=== PATIENT | male | born 1945 ===

== ENCOUNTER 2018-11-14 16:52 | Outpatient (REF) | payer MEDICARE, BC, SELFPAY ==
[2018-11-14 22:12] LABS: ALT 41 U/L (12-78); AST 28 U/L (15-37); Albumin 3.8 g/dL (3.4-5.0); Alkaline Phosphatase 50 U/L (46-116); Anion Gap 12.2 mmol/L (3-11); BUN 44 mg/dL (7-18); Bilirubin, Total 0.5 mg/dL (0.2-1.0); CO2 24.8 mmol/L (21.0-32.0); CREATININE 1.11 mg/dL (0.70-1.30); Calcium 9.8 mg/dL (8.5-10.1); Chloride 104 mmol/L (98-107); Glucose 112 mg/dL (70-100); Potassium 4.3 mmol/L (3.5-5.1); Sodium 141 mmol/L (136-145); Total Protein 7.3 g/dL (6.4-8.2)
== END 2018-11-14 17:12 ==
LOC: NCHCN 16:52
PROVIDERS: PCP Family Medicine; Visit Provider Family Medicine
DX: E88.09 Other disorders of plasma-protein metabolism, not elsewhere classified (principal)
CPT/HCPCS: 80053

== ENCOUNTER 2019-01-22 15:02 | Outpatient (REF) | payer MEDICARE, BC, SELFPAY ==
[2019-01-22 21:18] LABS: COMMENT (LAB VIEW ONLY) 38.05 mg/dL; Microalb ug/mg Crea 37.3 ug/mg Cr
== END 2019-01-22 15:22 ==
LOC: NCHCN 15:02
PROVIDERS: PCP Family Medicine; Visit Provider Registered Nurse
DX: R80.9 Proteinuria, unspecified (principal)
CPT/HCPCS: 82043; 82570

== ENCOUNTER 2020-05-20 20:03 | Outpatient (REF) | payer MEDICARE, BC, SELFPAY ==
[2020-05-20 21:06] LABS: Hemoglobin A1C 6.6 % (<5.7)
[2020-05-20 21:12] LABS: ALT 46 U/L (16-63); AST 28 U/L (15-37); Albumin 3.9 g/dL (3.4-5.0); Alkaline Phosphatase 42 U/L (46-116); Anion Gap 9.8 mmol/L (3-11); BUN 40 mg/dL (7-18); Bilirubin, Total 0.5 mg/dL (0.2-1.0); CO2 25.2 mmol/L (21.0-32.0); CREATININE 1.21 mg/dL (0.70-1.30); Calcium 9.7 mg/dL (8.5-10.1); Calculated LDL 76 mg/dL (<100); Chloride 105 mmol/L (98-107); Cholesterol 157 mg/dL (<200); Estimated GFR 58.62 (mL/min/1.73m2); Glucose 110 mg/dL (74-106); HDL Cholesterol 56 mg/dL (40-60); Potassium 4.5 mmol/L (3.5-5.1); Sodium 140 mmol/L (136-145); Total Protein 7.4 g/dL (6.4-8.2); Triglyceride 127 mg/dL (<150)
== END 2020-05-20 20:23 ==
LOC: NCHCN 20:03
PROVIDERS: PCP Family Medicine; Visit Provider Family Medicine
DX: E11.9 Type 2 diabetes mellitus without complications (principal); E78.5 Hyperlipidemia, unspecified; I10 Essential (primary) hypertension; I25.5 Ischemic cardiomyopathy
CPT/HCPCS: 80053; 80061; 83036

== ENCOUNTER 2020-11-18 16:50 | Outpatient (REF) | payer MEDICARE, BC, SELFPAY ==
[2020-11-18 22:11] LABS: COMMENT (LAB VIEW ONLY) 24.81 mg/dL; Microalb ug/mg Crea 43.5 ug/mg Cr
== END 2020-11-18 16:51 | disposition home or self-care (01) ==
LOC: NCHCN 16:50
PROVIDERS: PCP Family Medicine; Visit Provider Family Medicine
DX: E11.9 Type 2 diabetes mellitus without complications (principal); I10 Essential (primary) hypertension; E78.5 Hyperlipidemia, unspecified
CPT/HCPCS: 82043; 82570

== ENCOUNTER 2021-08-19 22:32 | Outpatient (REF) | payer MEDICARE, BC, SELFPAY ==
[2021-08-19 22:12] LABS: Anion Gap 12.6 mmol/L (3-11); BUN 61 mg/dL (7-18); CO2 20.4 mmol/L (21.0-32.0); CREATININE 1.5 mg/dL (0.70-1.30); Calcium 9.7 mg/dL (8.5-10.1); Chloride 105 mmol/L (98-107); Glucose 148 mg/dL (74-106); NT-proBNP 4414 pg/mL (<300); Potassium 4.4 mmol/L (3.5-5.1); Sodium 138 mmol/L (136-145)
== END 2021-08-19 22:33 | disposition home or self-care (01) ==
LOC: NCHCN 22:32
PROVIDERS: PCP Family Medicine; Visit Provider Family Medicine
DX: I50.22 Chronic systolic (congestive) heart failure (principal)
CPT/HCPCS: 80048; 83880

== ENCOUNTER 2021-08-25 19:16 | Outpatient (REF) | payer MEDICARE, BC, SELFPAY ==
[2021-08-25 21:02] LABS: BUN 52 mg/dL (7-18); CREATININE 1.2 mg/dL (0.70-1.30); Calcium 9.5 mg/dL (8.5-10.1); Chloride 106 mmol/L (98-107); Estimated GFR 58.86 (mL/min/1.73m2); Glucose 180 mg/dL (74-106); NT-proBNP 2602 pg/mL (<300); Potassium 4.5 mmol/L (3.5-5.1); Sodium 140 mmol/L (136-145)
== END 2021-08-25 19:17 | disposition home or self-care (01) ==
LOC: NCHCN 19:16
PROVIDERS: PCP Family Medicine; Visit Provider Family Medicine
DX: I50.22 Chronic systolic (congestive) heart failure (principal)
CPT/HCPCS: 80048; 83880

== ENCOUNTER 2021-09-29 16:48 | Outpatient (REF) | payer MEDICARE, BC, SELFPAY ==
[2021-09-29 21:32] LABS: Anion Gap 14.4 mmol/L (3-11); BUN 53 mg/dL (7-18); CO2 17.6 mmol/L (21.0-32.0); CREATININE 1.1 mg/dL (0.70-1.30); Calcium 9.3 mg/dL (8.5-10.1); Chloride 105 mmol/L (98-107); Glucose 180 mg/dL (74-106); NT-proBNP 2584 pg/mL (<300); Potassium 4.3 mmol/L (3.5-5.1); Sodium 137 mmol/L (136-145)
== END 2021-09-29 16:49 | disposition home or self-care (01) ==
LOC: NCHCN 16:48
PROVIDERS: PCP Family Medicine; Visit Provider Family Medicine
DX: I50.9 Heart failure, unspecified (principal)
CPT/HCPCS: 80048; 83880

== ENCOUNTER 2021-10-16 16:44 | Outpatient (REF) | payer MEDICARE, BC, SELFPAY ==
[2021-10-16 21:37] LABS: HCT 49.9 % (40.0-50.0); HGB 16.2 g/dL (13.5-17.5); MCH 27.9 pg (27.0-33.0); MCHC 32.5 % (32.0-36.0); MPV 11.7 fL (8.0-11.0); Platelet Count 160 10^3/uL (130-400); RDW 15.3 % (11.8-14.1); RDW-SD 47.8 fL; WBC 9.49 10^3/uL (4.4-10.8)
[2021-10-16 22:00] LABS: Anion Gap 13.8 mmol/L (3-11); BUN 64 mg/dL (7-18); CO2 19.2 mmol/L (21.0-32.0); CREATININE 1.5 mg/dL (0.70-1.30); Calcium 9.6 mg/dL (8.5-10.1); Chloride 101 mmol/L (98-107); Glucose 204 mg/dL (74-106); Potassium 4.5 mmol/L (3.5-5.1); Sodium 134 mmol/L (136-145); TSH 3.13 uIU/mL (0.36-3.74)
[2021-10-18 10:23] LABS: COVID-19 RT-PCR UVMMC Result Negative (Negative)
[2021-10-20 12:13] LABS: NT-proBNP 12208 pg/mL (<300)
== END 2021-10-16 16:45 | disposition home or self-care (01) ==
LOC: NCHCN 16:44
PROVIDERS: PCP Family Medicine; Visit Provider Registered Nurse
DX: R06.00 Dyspnea, unspecified (principal); I25.10 Atherosclerotic heart disease of native coronary artery without angina pectoris; Z20.822 Contact with and (suspected) exposure to COVID-19; J06.9 Acute upper respiratory infection, unspecified
CPT/HCPCS: 80048; 85027; U0003; U0005; 83880; 84443

== ENCOUNTER 2021-10-30 18:34 | Outpatient (REF) | payer MEDICARE, BC, SELFPAY ==
--- OUTSIDE RECORDS SUMMARY | 2021-10-30 18:38 | XMS_ITS | CCD ---
:1945 Author Care Team Providers Name Role Phone CATRACHO Attending Physician Unavailable CATRACHO Rounding (Secondary) Physician Unavailab le Vital Signs Unknown or Not Available. Allergies Allergy Code Allergy Type Reaction Status LIDOCAINE 6387 Drug allergy Active Procedures Unknown or Not Available. History of Immunizations Unknown or Not Available. Problems Unknown or Not Available. Results Unknown or Not Available. Active Medications Unknown or Not Available. Medications Administered During Visit Unknown or Not Available. 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 If you have left the spital and have any questions, please contact your primary care physician. Chief Complaint and Reason For Visit Unknown or Not Available. Function Status Unknown or Not Available. Plan of Care Unknown or Not Available. Referral/Transition of Care Unknown or Not Available.
--- OUTSIDE RECORDS SUMMARY | 2021-10-30 18:38 | XMS_ITS | CCD ---
:1945 Author Care Team Providers Name Role Phone MD TOMAS Attending Physician Unavailable Vital Signs Unknown or Not Available. Allergies Allergy Code Allergy Type Reaction Status LIDOCAINE 6387 Drug allergy Active Procedures Unknown or Not Available. History of Immunizations Unknown or Not Available. Problems Unknown or Not Available. Results COMPREHENSIVE METABOLIC PANEL (CMP) - Co llect Date/Time: 05/18/2021 13:51 Test Name Code Test Result Test Units Test Ref Range GLUCOSE 2345-7 135 mg/dL L=70 H=11 6 BUN 3094-0 35 mg/dL L=6 H=25 CREATININE 2160-0 1.21 mg/dL L=0.67 H=1.17 SODIUM SERUM 2951-2 142 mmol/L L=136 H=14 5 POTASSIUM SERUM 2823-3 4.1 mmol/L L=3.4 H =5.2 CHLORIDE SERUM 2075-0 107 mmol/L L=96 H= 110 CARBON DIOXIDE (CO2) 2028-9 20 mmol/L L=22 H=34 ANION GAP 19421-8 14.8 mmol/L CALCIUM SERUM 51314-4 9.3 mg/dL L=8.2 H=10.2 BILIRUBIN TOTAL 1975-2 0.7 mg/dL L=0.0 H =1.3 ALK. PHOS. 6768-6 56 U/L L=46 H=11 6 SGOT (AST) 1920-8 25 U/L L=15 H=37 SGPT (ALT) 1742-6 46 U/L L=12 H=78 TOTAL PROTEIN 2885-2 7.8 gm/dL L=6.0 H=8 .0 ALBUMIN 1751-7 3.9 gm/dL L=3.4 H=5. 0 AGE 75 years eGFR (non-Afr.Amer.) 21512-9 58 mL/min eGFR (Afr-[place]ian) 02774-6 71 mL/min HEMOGLOBIN A1C - Collect Date/Time: 04/23 13:51 Test Name Code Test Result Test Units Test Ref Range Hgb A1c 4548-4 6.9 % L=3.8 H=5. 7 MEAN BLOOD GLUCOSE 21484-3 144 mg/dL LIPID PANEL - Collect Date/Time: 021 13:51 Test Name Code Test Result Test Units Test Ref Range CHOLESTEROL 2093-3 139 mg/dL L=0 H=200 TRIGLYCERIDES 2571-8 70 mg/dL L=56 H=240 HDL 2085-9 54 mg/dL L=30 H=74 non-HDL-C 48398-9 85 mg/dL L=0 H=160 LDL (CALC) 92426-1 71 mg/dL L=0 H=130 % HDL 38.8 % Chol/HDL Ratio 9830-1 2.6 L=0.0 H=4.9 CHD Relative Risk 0.5 x Avg L=0.0 H=1.0 LDL/HDL Ratio 38993-8 1.3 L=0.0 H=3.5 CHD Relative Risk. 0.4 x Avg L=0.0 H=1.0 FASTING STATUS: NON FASTING N/A Active Medications Unknown or Not Available. Medications Administered During Visit Unknown or Not Available. Encounters Encounter Diagnosis Diagnosis Code Start Date Essential hypertension [id number] 05/18/2021 Social History Smoking Status Code Start Date End Date Never smoker [id number] Patient Decision Aids Unknown or Not Available. Discharge Instructions You were admitted to [facility] on 05/18/2021 13:47 with a principal diagnosis of Essential (primary) hyperte nsion You had the following tests done: COMPREHENSIVE METABOLIC PANEL (CMP) HEMOGLOBIN A1C L IPID PANEL You were discharged from [facility] on 05/18/2021 13:47 Should you have any questions prior to [...]
--- OUTSIDE RECORDS SUMMARY | 2021-10-30 18:38 | XMS_ITS | CCD ---
:1945 Author Care Team Providers Name Role Phone Danae SWAIN Attending Physician Unavailable Danae SWAIN Rounding (Secondary) Physician Unavailab shaw Vital Signs Unknown or Not Available. Allergies Allergy Code Allergy Type Reaction Status [facility] 6387 Drug allergy Active Procedures Unknown or Not Available. History of Immunizations Unknown or Not Available. Problems Unknown or Not Available. Results Unknown or Not Available. Active Medications Unknown or Not Available. Medications Administered During Visit Unknown or Not Available. Encounters Encounter Diagnosis Diagnosis Code Start Date Hypertensive heart disease with heart failure I110 09/03/2021 Social History Smoking Status Code Start Date End Date Never smoker [id number] Patient Decision Aids Unknown or Not Available. Discharge Instructions You were admitted to [facility] on 09/03/2021 15:03 with a principal diagnosis of Hypertensive heart disease with heart failure You were discharged from [facility] on 09/03/2021 00:00 Should you have any questions prior to d ischarge, please contact a member of your healthcare team. If you have left the [facility] and have any questions, please contact your primary care physician. Chief Complaint and Reason For Visit Unknown or Not Available. Function Status Unknown or Not Available. Plan of Care Unknown or Not Available. Referral/Transition of Care Unknown or Not Available.
--- OUTSIDE RECORDS SUMMARY | 2021-10-30 18:38 | XMS_ITS | CCD ---
:1945 Author Care Team Providers Name Role Phone MD CHRIS Attending Physician Unavailable Wes LUNA MD Er Physician 1 Unavailable MD TOMAS Rounding (Secondary) Physician Unavailab le Vital Signs Unknown or Not Available. Allergies Allergy Code Allergy Type Reaction Status LIDOCAINE 6387 Drug allergy Active Procedures Unknown or Not Available. History of Immunizations Unknown or Not Available. Problems Unknown or Not Available. Results COMPREHENSIVE METABOLIC PANEL (CMP) - Co llect Date/Time: 04/07/2021 19:15 Test Name Code Test Result Test Units Test Ref Range GLUCOSE 2345-7 136 mg/dL L=70 H=11 6 BUN 3094-0 44 mg/dL L=6 H=25 CREATININE 2160-0 1.27 mg/dL L=0.67 H=1.17 SODIUM SERUM 2951-2 135 mmol/L L=136 H=14 5 POTASSIUM SERUM 2823-3 4.5 mmol/L L=3.4 H =5.2 CHLORIDE SERUM 2075-0 103 mmol/L L=96 H= 110 CARBON DIOXIDE (CO2) 2028-9 23 mmol/L L=22 H=34 ANION GAP 25319-8 9.2 mmol/L CALCIUM SERUM 80199-8 9.9 mg/dL L=8.2 H=10.2 BILIRUBIN TOTAL 1975-2 0.5 mg/dL L=0.0 H =1.3 ALK. PHOS. 6768-6 49 U/L L=46 H=11 6 SGOT (AST) 1920-8 22 U/L L=15 H=37 SGPT (ALT) 1742-6 25 U/L L=12 H=78 TOTAL PROTEIN 2885-2 8.5 gm/dL L=6.0 H=8 .0 ALBUMIN 1751-7 3.6 gm/dL L=3.4 H=5. 0 AGE 75 years eGFR (non-Afr.Amer.) 79285-4 55 mL/min eGFR (Afr-[place]) 49500-0 67 mL/min TROPONIN-I ADM. - Collect Date/Time: 19:15 Test Name Code Test Result Test Units Test Ref Range TROPONIN-I 42576-3 <0.017 ng/mL L=0.000 H=0. 060 CBC W/ DIFFERENTIAL - Collect Date/Time: 04/07/2021 19:15 Test Name Code Test Result Test Units Test Ref Range WBC 6690-2 10.88 th/cmm L=5.00 H=10.00 NEUT % 70.4 % L=40.0 H=80.0 LYMPH % 14.1 % L=10.0 H=50.0 MONO % 87600-7 12.4 % L=2.0 H=12.0 EOS % 2.1 % L=0.0 H=8. 0 BASO % 0.6 % L=0.0 H=3. 0 IG % 2514-8 0.4 % L=0.0 H=1. 1 NRBC % 67910-9 0.0 % L=0.0 H=0. 0 NEUT abs count 751-8 7.7 th/cmm L=1.6 H= 8.4 LYMPH abs count 731-0 1.5 th/cmm L=1.5 H =4.0 MONO abs count 742-7 1.4 th/cmm L=0.2 H= 1.0 EOS abs count 711-2 0.2 th/cmm L=0.0 H=0 .5 BASO abs count 704-7 0.1 th/cmm L=0.0 H= 0.2 IG abs count 76698-4 0.0 th/cmm L=0.0 H=0. 1 NRBC abs count 95129-3 0.0 mil/cmm L=0.0 H= 0.0 RBC 789-8 5.00 mil/cmm L=4.30 H=6.20 HEMOGLOBIN 718-7 14.7 gm/dL L=13.0 H=17.0 HEMATOCRIT 4544-3 45 % L=45 H=52 MCV 787-2 91 fL L=82 H=92 MCH 785-6 29.4 pg L=27.0 H=31.0 MCHC 786-4 32.5 % L=32.0 H=36.0 RDW-SD 788-0 46.7 fL L=39.0 H=49.0 PLATELET COUNT 777-3 156 th/cmm L=150 H= 450 Active Medications Unknown or Not Available. Medications Administered During Visit Unknown or Not Available. Encounters Encounter Diagnosis Diagnosis Code Start Date Cerebral infarction, unspecified I639 021 Social History Smoking Status Code Start Date End Date Never smoker [id number] Patient Decision Aids Unknown or Not Available. Discharge Instructions You were admitted to [facility] on 04/07/2021 18:57 with a principal diagnosis of Cerebral infarction, unspec ified You had the following tests done: CBC W/ DIFFERENTIAL COMPREHENSIVE METABOLIC PANEL (CMP) TROPONIN-I ADM. You were discharged from [facility] on 04/07/2021 22:00 Should you have any questions prior to d ischarge, please contact a member of your healthcare team. If you have left the ho spital and have any questions, please contact your primary care physician. Chief Complaint and Reason For Visit Chief Complaint Date of Onset POSSIBLE TIA Function Status Unknown or Not Available. Plan of Care Unknown or Not Available. Referral/Transition of Care Unknown or Not Available.
--- OUTSIDE RECORDS SUMMARY | 2021-10-30 18:38 | XMS_ITS | CCD ---
:1945 Author Care Team Providers Name Role Phone Wes LUNA MD Attending Physician Unavailable Wes LUNA MD Er Physician 1 Unavailable Vital Signs Unknown or Not Available. Allergies Allergy Code Allergy Type Reaction Status LIDOCAINE 6387 Drug allergy Active Procedures Unknown or Not Available. History of Immunizations Unknown or Not Available. Problems Unknown or Not Available. Results Unknown or Not Available. Active Medications Unknown or Not Available. Medications Administered During Visit Unknown or Not Available. 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 Discharge Instructions You were admitted to [facility] on 04/06/2021 18:31 with a principal diagnosis of Ophthalmoplegic migraine, n ot intractable You were discharged from [facility] on 04/06/2021 19:52 Should you have any questions prior to d ischarge, please contact a member of your healthcare team. If you have left the spital and have any questions, please contact your primary care physician. Chief Complaint and Reason For Visit Chief Complaint Date of Onset VISION PROBLEM Function Status Unknown or Not Available. Plan of Care Unknown or Not Available. Referral/Transition of Care Unknown or Not Available.
--- OUTSIDE RECORDS SUMMARY | 2021-10-30 18:38 | XMS_ITS | CCD ---
:1945 Author Care Team Providers Name Role Phone MD MATT Attending Physician Unavailable MD MATT Er Physician 1 Unavailable Vital Signs Unknown or Not Available. Allergies Allergy Code Allergy Type Reaction Status LIDOCAINE 6387 Drug allergy Active Procedures Unknown or Not Available. History of Immunizations Unknown or Not Available. Problems Unknown or Not Available. Results BASIC METABOLIC PANEL (BMP) - Collect Da te/Time: 04/12/2021 18:40 Test Name Code Test Result Test Units Test Ref Range GLUCOSE 2345-7 134 mg/dL L=70 H=11 6 BUN 3094-0 42 mg/dL L=6 H=25 CREATININE 2160-0 1.16 mg/dL L=0.67 H=1.17 SODIUM SERUM 2951-2 136 mmol/L L=136 H=14 5 POTASSIUM SERUM 2823-3 4.4 mmol/L L=3.4 H =5.2 CHLORIDE SERUM 2075-0 102 mmol/L L=96 H= 110 CARBON DIOXIDE (CO2) 2028-9 22 mmol/L L=22 H=34 ANION GAP 92900-1 12.0 mmol/L CALCIUM SERUM 87477-7 9.6 mg/dL L=8.2 H=10.2 AGE 75 years eGFR (non-Afr.Amer.) 42049-6 61 mL/min eGFR (Afr-[place]ian) 69029-9 74 mL/min CBC W/ DIFFERENTIAL - Collect Date/Time: 04/12/2021 18:40 Test Name Code Test Result Test Units Test Ref Range WBC 6690-2 10.66 th/cmm L=5.00 H=10.00 NEUT % 70.7 % L=40.0 H=80.0 LYMPH % 13.7 % L=10.0 H=50.0 MONO % 57298-5 12.5 % L=2.0 H=12.0 EOS % 1.7 % L=0.0 H=8. 0 BASO % 0.7 % L=0.0 H=3. 0 IG % 2514-8 0.7 % L=0.0 H=1. 1 NRBC % 52152-8 0.0 % L=0.0 H=0. 0 NEUT abs count 751-8 7.6 th/cmm L=1.6 H= 8.4 LYMPH abs count 731-0 1.5 th/cmm L=1.5 H =4.0 MONO abs count 742-7 1.3 th/cmm L=0.2 H= 1.0 EOS abs count 711-2 0.2 th/cmm L=0.0 H=0 .5 BASO abs count 704-7 0.1 th/cmm L=0.0 H= 0.2 IG abs count 11372-2 0.1 th/cmm L=0.0 H=0. 1 NRBC abs count 01699-4 0.0 mil/cmm L=0.0 H= 0.0 RBC 789-8 4.46 mil/cmm L=4.30 H=6.20 HEMOGLOBIN 718-7 13.3 gm/dL L=13.0 H=17.0 HEMATOCRIT 4544-3 39 % L=45 H=52 MCV 787-2 88 fL L=82 H=92 MCH 785-6 29.8 pg L=27.0 H=31.0 MCHC 786-4 33.8 % L=32.0 H=36.0 RDW-SD 788-0 43.4 fL L=39.0 H=49.0 PLATELET COUNT 777-3 237 th/cmm L=150 H= 450 PT PROTHROMBIN TIME - Collect Date/Time: 04/12/2021 20:09 Test Name Code Test Result Test Units Test Ref Range PROTIME 5902-2 11.0 seconds L=9.3 H=11 .4 INR 04406-9 1.08 L=2.00 H=3. 00 Active Medications Unknown or Not Available. Medications Administered During Visit Unknown or Not Available. Encounters Encounter Diagnosis Diagnosis Code Start Date Unspecified atherosclerosis of [place] arteries of [id number] 04/12/2021 extremities, right leg Social History Smoking Status Code Start Date End Date Never smoker [id number] Patient Decision Aids Unknown or Not Available. Discharge Instructions You were admitted to [facility] on 04/12/2021 17:32 with a principal diagnosis of Unspecified atherosclerosis of [place] arteries of extremities, right leg You had the following tests done: PT PROTHROMBIN TIME BASIC METABOLIC PANEL (BMP) CBC W/ DI FFERENTIAL You were discharged from [facility] on 04/12/2021 21:08 Should you have any questions prior to d ischarge, please contact a member of your healthcare team. If you have left the ho spital and have any questions, please contact your primary care physician. Chief Complaint and Reason For Visit Chief Complaint Date of Onset POSSIBLE DVT Function Status Unknown or Not Available. Plan of Care Unknown or Not Available. Referral/Transition of Care Unknown or Not Available.
[2021-10-30 21:18] LABS: Anion Gap 14.4 mmol/L (3-11); BUN 79 mg/dL (7-18); CO2 18.6 mmol/L (21.0-32.0); CREATININE 1.6 mg/dL (0.70-1.30); Calcium 9.3 mg/dL (8.5-10.1); Chloride 104 mmol/L (98-107); Estimated GFR 42.24 (mL/min/1.73m2); Glucose 254 mg/dL (74-106); Potassium 4.4 mmol/L (3.5-5.1); Sodium 137 mmol/L (136-145)
== END 2021-10-30 18:35 | disposition home or self-care (01) ==
LOC: LBN 18:34
PROVIDERS: PCP Family Medicine; Visit Provider Internal Medicine Cardiovascular Disease
DX: I50.9 Heart failure, unspecified (principal)
CPT/HCPCS: 80048